=== PATIENT | male | born 1980 | race Caucasian/White ===

== ENCOUNTER 2021-07-23 10:15 | Emergency (ER) | payer BC ==
[2021-07-23] MEDS ORDERED: ONDANSETRON 4 MG/2 ML VIAL ONE (10:26)
[2021-07-23] MEDS ORDERED: MEPERIDINE HCL 25 MG/ML SYR ONE ×2 (10:26→11:18)
--- NOTE | 2021-07-23 12:05 | RAD REPORT ---
EXAM DESCRIPTION: RAD - Chest Single View - 07/23/2021 11:16 am CLINICAL HISTORY: fall from ladder, chest and left shoulder pain COMPARISON: September 2016 TECHNIQUE: AP portable chest image was obtained 07/23/2021 11:16 am . FINDINGS: Lungs are clear. Heart and vasculature are normal. No measurable pleural effusion and no p neumothorax. No acute bony abnormality seen. No acute aortic findings suspected. IMPRESSION: No acute cardiopulmonary process. Rib detail is limited on single view examination. Concerns for rib fracture can be addressed with ded icated rib films as warranted.
--- NOTE | 2021-07-23 12:06 | RAD REPORT ---
EXAM DESCRIPTION: RAD - C Spine Ap/Lat - 07/23/2021 11:16 am CLINICAL HISTORY: fall from ladder;Pain COMPARISON: No comparisons FINDINGS: Cervical bodies are normal in height. Very slight retrolisthesis of C5 on C6 noted. This i s believed to be baseline. No fracture or acute bony process seen. No disc space narrowing. Mild lowe r cervical facet degenerative changes are present. There is no prevertebral soft tissue thickening or other suspicious soft tissue finding. IMPRESSION: Negative cervical spine examination for fracture or acute finding. Concerns for disc herniation, central canal abnormality or occult bone process can be addressed with follow-up MRI imaging.
--- NOTE | 2021-07-23 12:07 | RAD REPORT ---
EXAM DESCRIPTION: RAD - Shoulder Left 2 View - 07/23/2021 11:16 am CLINICAL HISTORY: PAIN COMPARISON: No comparisons TECHNIQUE: Internal and external rotation views of the left shoulder were obtained. FINDINGS: There is no fracture or dislocation. AC joint is normal in appearance. Ribs of the upper c hest appear intact. No acute or suspicious findings. IMPRESSION: Negative two-view left shoulder examination for acute findings.
--- NOTE | 2021-07-23 12:08 | RAD REPORT ---
EXAM DESCRIPTION: RAD - Humerus Left - 07/23/2021 11:16 am CLINICAL HISTORY: Fall, left shoulder and arm pain COMPARISON: None. FINDINGS: No fracture is identified. There is no dislocation or periosteal reaction noted. No forei gn body or other soft tissue abnormality. IMPRESSION: Negative left humerus examination.
--- NOTE | 2021-07-23 12:08 | RAD REPORT ---
EXAM DESCRIPTION: RAD - Wrist Left 3 View - 07/23/2021 11:16 am CLINICAL HISTORY: PAIN, fall with shoulder arm and wrist pain left-side COMPARISON: No comparisons FINDINGS: No fracture is identified. There is no dislocation or periosteal reaction noted. No foreig n body or other soft tissue abnormality. IMPRESSION: Negative left wrist examination.
--- NOTE | 2021-07-23 12:20 | EDPHYS ---
Physician Documentation [facility] Name: Gerber Phan Age: 41 yrs Sex: Male : 1980 Arrival Date: 07/23/2021 Time: 10:16 Bed 5 Private MD: ED Physician Lito Villanueva HPI: 07/23 10:28 This 41 yrs old Male presents to ER via Wheelchair with complaints of Fall rn off 8 Ft Ladder, Trauma Complaint. 10:28 Trauma demographics: Location of Injury: The injury occurred outdoors. Mechanism of rn injury: Fall: the patient fell from a ladder approximately approximately 8 feet, and struck a grass-covered surface. Associated injuries: The patient sustained neck injury, pain, Left shoulder. Onset: The symptoms/episode began/occurred just prior to arrival. The patient has not experienced similar symptoms in the past. Patient reports fell 8 feet from ladder, landed on left side of body, reports pain to left shoulder mainly but also mild pain to left side of neck. Denies LOC or head injury. Does not take blood thinners. Denies chest pain/abdominal pain/lower extremity pain. Reports also mild pain to left wrist. Hurts to move left shoulder.. Historical: - Allergies: 10:26 HYDROCODONE; vg1 10:26 PENICILLINS; vg1 10:26 Chlorhexidine Gluconate; vg1 - PMHx: 10:38 Depression; low testosterone; jl7 - PSHx: 10:26 None; vg1 - Immunization history:: Client reports receiving the 2nd dose of the Covid vaccine. - Social history:: Smoking status: Patient denies any tobacco usage or history of. - Immunization history: Last tetanus immunization: < 10 years ago. - Family history:: not pertinent. - Hospitalizations: : No recent hospitalization is reported. ROS: 10:28 Constitutional: Negative for fever, chills, and weight loss, Eyes: Negative for injury, rn pain, redness, and discharge, ENT: Negative for injury, pain, and discharge, Neck: Mild left-sided neck pain Cardiovascular: Negative for chest pain, palpitations, and edema, Respiratory: Negative for shortness of breath, cough, wheezing, and pleuritic chest pain, Abdomen/GI: Negative for abdominal pain, nausea, vomiting, diarrhea, and constipation, Back: Negative for injury and pain, : Negative for injury, bleeding, discharge, and swelling, MS/Extremity: Pain to left shoulder that increases with range of motion and elevation, mild pain to left wrist Skin: Negative for injury, rash, and discoloration, Neuro: Negative for headache, weakness, numbness, tingling, and seizure. Exam: 10:28 Constitutional: This is a well developed, well nourished patient who is awake, alert, rn and in no acute distress. Head/Face: Normocephalic, atraumatic. Eyes: Periorbital areas with no swelling, redness, or edema. Neck: No midline cervical tenderness no crepitus, no masses Chest/axilla: Normal chest wall appearance and motion. Nontender with no deformity. No lesions are appreciated. Cardiovascular: Regular rate and rhythm. No pulse deficits. Respiratory: Speaking full sentences, unlabored. No increased work of breathing, no retractions or nasal flaring. Abdomen/GI: Soft, non-tender Back: No spinal tenderness. No costovertebral tenderness. Full range of motion. Skin: Warm, dry with normal turgor. Normal color with no rashes, no lesions, and no evidence of cellulitis. MS/ Extremity: Pulses equal, no cyanosis. Moderate painful range of motion left shoulder, unable to touch opposite shoulder with left hand. Tenderness to proximal left humerus. No tenderness along clavicle. No crepitus. Neuro: Awake and alert, GCS 15, oriented to person, place, time, and situation. Cranial nerves II-XII grossly intact. Motor strength 5/5 in all extremities. Sensory grossly intact. Vital Signs: 10:24 BP 145 / 83; Pulse 75; Resp 18; Temp 98.4; Pulse Ox 100% ; Weight 97.52 kg; Height 6 vg1 ft. 3 in. (190.50 cm); Pain 10/10; 10:24 BP 145 / 83; Pulse 75; Resp 18 S; Temp 98.4; Pulse Ox 100% on R/A; Weight 97.52 kg; jl7 Height 6 ft. 3 in. (190.50 cm); Pain 10/10; 11:00 BP 131 / 81; Pulse 59; Resp 15; Pulse Ox 96% ; jl7 11:30 BP 133 / 83; Pulse 61; Resp 15; Pulse Ox 94% ; jl7 12:00 BP 134 / 80; Pulse 61; Resp 16; Pulse Ox 95% on R/A; ll3 12:30 BP 126 / 84; Pulse 60; Resp 16; Pulse Ox 97% ; ll3 10:24 Body Mass Index 26.87 (97.52 kg, 190.50 cm) vg1 [place] Coma Score: 10:24 Eye Response: spontaneous(4). Verbal Response: oriented(5). Motor Response: obeys jl7 commands(6). Total: 15. 11:00 Eye Response: spontaneous(4). Verbal Response: oriented(5). Motor Response: obeys jl7 commands(6). Total: 15. 11:30 Eye Response: spontaneous(4). Verbal Response: oriented(5). Motor Response: obeys jl7 commands(6). Total: 15. 12:00 Eye Response: spontaneous(4). Verbal Response: oriented(5). Motor Response: obeys ll3 commands(6). Total: 15. 12:30 Eye Response: spontaneous(4). Verbal Response: oriented(5). Motor Response: obeys jl7 commands(6). Total: 15. Trauma Score (Adult): 10:24 Eye Response: spontaneous(1); Verbal Response: oriented(1); Motor Response: obeys jl7 commands(2); Systolic BP: > 89 mm Hg(4); Respiratory Rate: 10 to 29 per min(4); Tracey Score: 15; Trauma Score: 12 MDM: 10:19 Patient medically screened. rn 12:18 Differential diagnosis: extremity fracture, C spine fracture. Data reviewed: vital rn signs, nurses notes, radiologic studies, plain films, and as a result, I will discharge patient. Counseling: I had a detailed discussion with the patient and/or guardian regarding: the historical points, exam findings, and any diagnostic results supporting the discharge/admit diagnosis, radiology results, the need for outpatient follow up, to return to the emergency department if symptoms worsen or persist or if there are any questions or concerns that arise at home. Response to treatment: the patient's symptoms have mildly improved after treatment, and as a result, I will discharge patient. Special discussion: I discussed with the patient/guardian in detail that at this point there is no indication for admission to the hospital. It is understood, however, that if the symptoms persist or worsen the patient needs to return immediately for re-evaluation. Based on the history and exam findings, there is no indication for further emergent testing or inpatient evaluation. I discussed with the patient/guardian the need to see the orthopedic surgeon for further evaluation of the symptoms. ED course: Patient with improvement after pain medication. No acute fracture or dislocation. Most likely ligamentous or tendon injury involving the left shoulder. Will place in sling and discharged home with pain medication and muscle relaxers as well as orthopedic follow-up for MRI.. 07/23 10:24 Order name: XRAY C Spine Ap/lat; Complete Time: 12:09 rn 07/23 10:24 Order name: XRAY Shoulder LEFT 2 view; Complete Time: 12: rn 07/23 10:24 Order name: XRAY Humerus LEFT; Complete Time: 12: rn 07/23 10:24 Order name: XRAY Wrist LEFT 3 view; Complete Time: 12: rn 07/23 10:31 Order name: XRAY Chest (1 view); Complete Time: 12: rn 07/23 10:24 Order name: IV Start; Complete Time: 10:52 rn 07/23 10:24 Order name: NPO; Complete Time: 10:27 rn 07/23 11:28 Order name: Sling; Complete Time: 13:42 rn Administered Medications: 10:52 Drug: Demerol (meperidine) 25 mg Route: IVP; Site: right antecubital; ll3 11:27 Follow up: Response: No adverse reaction; Pain is unchanged, physician notified ll3 10:52 Drug: Zofran (Ondansetron) 4 mg Route: IVP; Site: right antecubital; ll3 11:27 Follow up: Response: No adverse reaction ll3 11:25 Drug: Demerol (meperidine) 25 mg Route: IVP; Site: right antecubital; ll3 12:31 Follow up: Response: No adverse reaction; Pain is decreased ll3 11:27 CANCELLED (wrong orderr): Demerol (meperidine) 25 mg IM once; RASS on ADMIN: Combtv4, ll3 Very Agttd3, Agttd2, Rstlss1, AlertClm0, Drwsy-1, Lt Sdtn-2, Mod Sdtn-3, Dp Sdtn-4, UnArsble-5 Disposition Summary: 07/23/21 12:19 Discharge Ordered Location: Home rn Problem: new rn Symptoms: have improved rn Condition: Stable rn Diagnosis - Contusion of left shoulder rn - Other sprain of left shoulder joint rn Followup: rn - With: Ryan Aguiar MD - When: 5 - 6 days - Reason: Recheck today's complaints, Re-evaluation by your physician Discharge Instructions: - Discharge Summary Sheet rn - Shoulder Pain rn - Neck Contusion rn - Shoulder Sprain rn Forms: - Medication Reconciliation Form rn - Thank You Letter rn - Antibiotic afternoon nanny - Prescription Opioid Use rn Prescriptions: - Ibuprofen 800 mg Oral Tablet - take 1 tablet by ORAL route every 8 hours As needed take with food; 9 tablet; rn Refills: 0, Product Selection Permitted - Cyclobenzaprine 10 mg Oral Tablet - take 1 tablet by ORAL route every 8 hours As needed; 15 tablet; Refills: 0, rn Product Selection Permitted - Tramadol 50 mg Oral Tablet - take 1 tablet by ORAL route every 8 hours as needed; 15 tablet; Refills: 0, rn Product Selection Permitted Signatures: Dispatcher [employer] EDMS Lito Villanueva MD MD rn Leal, Jahala, RN RN jl7 Citlalli Werner RN RN vg1 Anaid Johns, RN RN ll3 Corrections: (The following items were deleted from the chart) 11:27 11:26 Demerol (meperidine) 25 mg IM once; RASS on ADMIN: Combtv4, Very Agttd3, Agttd2, ll3 Rstlss1, AlertClm0, Drwsy-1, Lt Sdtn-2, Mod Sdtn-3, Dp Sdtn-4, UnArsble-5 ordered. ll3
--- NOTE | 2021-07-23 12:20 | ER ---
Nurse's Notes [facility] Name: Gerber Phan Age: 41 yrs Sex: Male : 1980 Arrival Date: 07/23/2021 Time: 10:16 Bed 5 Private MD: Diagnosis: Contusion of left shoulder;Other sprain of left shoulder joint Presentation: 07/23 10:24 Chief complaint: Patient states: Approximately 30 minutes ago pt fell off an 8 foot vg1 ladder onto grass, states fell onto left side, c/o Left shoulder pain and left side of neck. Denies hitting head or LOC. Coronavirus screen: Vaccine status: Patient reports receiving the 2nd dose of the covid vaccine. Client denies travel out of the [place] in the last 14 days. Ebola Screen: Patient negative for fever greater than or equal to 101.5 degrees Fahrenheit, and additional compatible Ebola Virus Disease symptoms. Initial Sepsis Screen: Does the patient meet any 2 criteria? No. Patient's initial sepsis screen is negative. Does the patient have a suspected source of infection? No. Patient's initial sepsis screen is negative. Risk Assessment: Do you want to hurt yourself or someone else? Patient reports no desire to harm self or others. Onset of symptoms was July 23, 2021. 10:24 Method Of Arrival: Wheelchair vg1 10:24 Acuity: TINO 3 vg1 10:32 Care prior to arrival: None. Mechanism of Injury: Fall from ladder approximately 8 jl7 feet. Trauma event details: Injury occurred in the [facility], Injury occurred: at home. Injury occurred: July 23, 2021 Injury occurred at: 10:00. Triage Assessment: 10:26 General: Appears in no apparent distress. uncomfortable, Behavior is calm, cooperative. vg1 Pain: Complains of pain in Left shoulder, neck and Left wrist Pain currently is 10 out of 10 on a pain scale. Neuro: Level of Consciousness is awake, alert, obeys commands, Oriented to person, place, time, situation. Trauma Activation: Alert Physician: ED Physician; Name: Rich; Notified At: 10:24; Arrived At: 10:20 Physician: General Surgeon; Name: ; Notified At: 10:24; Arrived At: Physician: Radiology; Name: Yadira; Notified At: 10:24; Arrived At: 10:25 Physician: Respiratory; Name: ; Notified At: 10:24; Arrived At: Physician: Lab; Name: ; Notified At: 10:24; Arrived At: Historical: - Allergies: 10:26 HYDROCODONE; vg1 10:26 PENICILLINS; vg1 10:26 Chlorhexidine Gluconate; vg1 - PMHx: 10:38 Depression; low testosterone; jl7 - PSHx: 10:26 None; vg1 - Immunization history:: Client reports receiving the 2nd dose of the Covid vaccine. - Social history:: Smoking status: Patient denies any tobacco usage or history of. - Immunization history: Last tetanus immunization: < 10 years ago. - Family history:: not pertinent. - Hospitalizations: : No recent hospitalization is reported. Screenin:24 Abuse screen: Denies threats or abuse. Denies injuries from another. Tuberculosis jl7 screening: No symptoms or risk factors identified. 12:50 Fall Risk IV access (20 points). ll3 12:50 Nutritional screening: No deficits noted. ll3 Primary Survey: 10:24 NO uncontrolled hemorrhage observed. A: Airway: patent. Breathing/Chest: Respiratory jl7 pattern: regular, Respiratory effort: spontaneous, unlabored, Breath sounds: clear, bilaterally. Chest inspection: symmetrical rise and fall of the chest. Circulation: Pulses: palpable right radial artery and left radial artery. Skin color: pink, Skin temperature: warm. Disability Alert. Exposure/Environment: All clothing and personal items were removed. Forensic evidence collection is not deemed to be indicated at this time. Items placed in patient belonging bag. There is no evidence of uncontrolled external bleeding. Obvious injury(ies) are noted at this time: Reports left arm pain A warming method has been applied: A warm blanket has been provided to the patient. 11:00 Reassessment Airway Airway Patent Breathing/Chest Respiratory pattern Regular jl7 Respiratory effort Spontaneous Unlabored Chest inspection Symmetrical Circulation Color [place] Disability Alert. 12:50 Reassessment Breathing/Chest Respiratory pattern Regular Respiratory effort Spontaneous.ll3 Assessment: 10:30 General: Appears in no apparent distress. comfortable, Behavior is calm, cooperative. ll3 Pain: Complains of pain in anterior aspect of left shoulder. Neuro: Level of Consciousness is awake, alert, obeys commands, Oriented to person, place, time, situation, Gait is steady, Speech is normal, Facial symmetry appears normal. Cardiovascular: Patient's skin is warm and dry. Respiratory: Airway is patent Trachea midline Respiratory effort is even, unlabored, Respiratory pattern is regular, symmetrical. GI: Abdomen is flat, non-distended, Abd is soft and non tender X 4 quads. Derm: Skin is pink, warm \T\ dry. Musculoskeletal: Range of motion: limited in left shoulder, left elbow and left wrist Reports pain in left arm. 11:30 Reassessment: Patient appears in no apparent distress at this time. No changes from ll3 previously documented assessment. Patient and/or family updated on plan of care and expected duration. Pain level reassessed. Patient is alert, oriented x 3, equal unlabored respirations, skin warm/dry/pink. Patient states symptoms have improved. 12:30 Reassessment: Patient appears in no apparent distress at this time. No changes from ll3 previously documented assessment. Patient and/or family updated on plan of care and expected duration. Pain level reassessed. Patient is alert, oriented x 3, equal unlabored respirations, skin warm/dry/pink. Patient states symptoms have improved. Vital Signs: 10:24 BP 145 / 83; Pulse 75; Resp 18; Temp 98.4; Pulse Ox 100% ; Weight 97.52 kg; Height 6 vg1 ft. 3 in. (190.50 cm); Pain 10/10; 10:24 BP 145 / 83; Pulse 75; Resp 18 S; Temp 98.4; Pulse Ox 100% on R/A; Weight 97.52 kg; jl7 Height 6 ft. 3 in. (190.50 cm); Pain 10/10; 11:00 BP 131 / 81; Pulse 59; Resp 15; Pulse Ox 96% ; jl7 11:30 BP 133 / 83; Pulse 61; Resp 15; Pulse Ox 94% ; jl7 12:00 BP 134 / 80; Pulse 61; Resp 16; Pulse Ox 95% on R/A; ll3 12:30 BP 126 / 84; Pulse 60; Resp 16; Pulse Ox 97% ; ll3 10:24 Body Mass Index 26.87 (97.52 kg, 190.50 cm) vg1 [place] Coma Score: 10:24 Eye Response: spontaneous(4). Verbal Response: oriented(5). Motor Response: obeys jl7 commands(6). Total: 15. 11:00 Eye Response: spontaneous(4). Verbal Response: oriented(5). Motor Response: obeys jl7 commands(6). Total: 15. 11:30 Eye Response: spontaneous(4). Verbal Response: oriented(5). Motor Response: obeys jl7 commands(6). Total: 15. 12:00 Eye Response: spontaneous(4). Verbal Response: oriented(5). Motor Response: obeys ll3 commands(6). Total: 15. 12:30 Eye Response: spontaneous(4). Verbal Response: oriented(5). Motor Response: obeys jl7 commands(6). Total: 15. Trauma Score (Adult): 10:24 Eye Response: spontaneous(1); Verbal Response: oriented(1); Motor Response: obeys jl7 commands(2); Systolic BP: > 89 mm Hg(4); Respiratory Rate: 10 to 29 per min(4); Tracey Score: 15; Trauma Score: 12 ED Course: 10:16 Patient arrived in ED. ds1 10:19 Lito Villanueva MD is Attending Physician. rn 10:24 Patient has correct armband on for positive identification. Placed in gown. Bed in low jl7 position. Call light in reach. Side rails up X2. 10:24 Patient maintains SpO2 saturation greater than 95% on room air. Thermoregulation: warm jl7 blanket given to patient. 10:26 Triage completed. vg1 10:26 Arm band placed on. vg1 10:27 Anaid Johns, DAVID is Primary Nurse. ll3 10:45 Inserted saline lock: 20 gauge in right antecubital area, using aseptic technique. ll3 11:16 XRAY C Spine Ap/lat In Process Unspecified. EDMS 11:16 XRAY Shoulder LEFT 2 view In Process Unspecified. EDMS 11:16 XRAY Humerus LEFT In Process Unspecified. EDMS 11:16 XRAY Wrist LEFT 3 view In Process Unspecified. EDMS 11:16 XRAY Chest (1 view) In Process Unspecified. EDMS 12:19 Ryan Aguiar MD is Referral Physician. rn 12:30 Sling applied to left arm. ll3 12:50 No provider procedures requiring assistance completed. IV discontinued, intact, ll3 bleeding controlled, No redness/swelling at site. Pressure dressing applied. Administered Medications: 10:52 Drug: Demerol (meperidine) 25 mg Route: IVP; Site: right antecubital; ll3 11:27 Follow up: Response: No adverse reaction; Pain is unchanged, physician notified ll3 10:52 Drug: Zofran (Ondansetron) 4 mg Route: IVP; Site: right antecubital; ll3 11:27 Follow up: Response: No adverse reaction ll3 11:25 Drug: Demerol (meperidine) 25 mg Route: IVP; Site: right antecubital; ll3 12:31 Follow up: Response: No adverse reaction; Pain is decreased ll3 11:27 CANCELLED (wrong orderr): Demerol (meperidine) 25 mg IM once; RASS on ADMIN: Combtv4, ll3 Very Agttd3, Agttd2, Rstlss1, AlertClm0, Drwsy-1, Lt Sdtn-2, Mod Sdtn-3, Dp Sdtn-4, UnArsble-5 Intake: 12:30 PO: 0ml; IV: 0ml; Tubes: 0ml (); Total: 0ml. jl7 Output: 12:30 Urine: 0ml; Gastric: 0ml; Stool: 0; EBL: 0ml; Drainage: 0ml; Other: 0; Total: 0ml. jl7 Outcome: 12:19 Discharge ordered by . rn 12:49 Discharged to home ambulatory. ll3 12:49 Condition: stable 12:49 Discharge instructions given to patient, Instructed on discharge instructions, follow up and referral plans. Demonstrated understanding of instructions, follow-up care, medications, Prescriptions given X 3. 12:55 Patient's length of stay was not longer than 2 hours. ll3 12:55 Patient left the ED. ll3 Signatures: Dispatcher [employer] EDCT TangAngelika dsLito Ross MD MD rn Leal, Jahala, RN RN jl7 Citlalli Werner RN RN 1 Anaid Johns RN RN ll3 Corrections: (The following items were deleted from the chart) 10:53 10:53 Inserted saline lock: 20 gauge in right antecubital area, using aseptic ll3 technique. ll3
[2021-07-23 13:02] VITALS: TEMP 98.4
[2021-07-23 13:09] VITALS: BP 126/84; O2SAT 97
== END 2021-07-23 12:55 | disposition home or self-care (01) ==
LOC: ER 10:15
DX: S43.492A Other sprain of left shoulder joint, initial encounter (principal); W11.XXXA Fall on and from ladder, initial encounter; Z88.0 Allergy status to penicillin; Z88.5 Allergy status to narcotic agent; Z88.8 Allergy status to other drugs, medicaments and biological substances
CPT/HCPCS: 71045; 72040; 73060; 73030; 73110; 96375; 96374; 99284; J2175 ×2; J2405

== ENCOUNTER 2021-08-20 01:13 | Inpatient (IN) | payer BC ==
[2021-08-20 02:20] LABS: Absolute Lymphocytes (CBC) 2.7 K/uL (0.7-4.9); Basophils % 0.8 % (0-1.3); Hematocrit 45.7 % (39.6-49.0); Lymphocytes % 32.4 % (15.3-44.8); MPV 7.4 fL (7.6-11.3); RBC Red Blood Cell Count 4.94 M/uL (4.33-5.43)
[2021-08-20 02:30] LABS: Protime INR 0.96
[2021-08-20 02:49] LABS: ALT/SGPT 28 U/L (12-78); AST/SGOT 18 U/L (15-37); Albumin 3.6 g/dL (3.4-5.0); Alkaline Phosphatase 93 U/L (45-117); BUN Blood Urea Nitrogen 36 mg/dL (7-18); Bicarbonate 24 mmol/L (21-32); Bilirubin Direct 0.1 mg/dL (0-0.2); Bilirubin Total 0.5 mg/dL (0.2-1.0); Glucose Level 153 mg/dL (74-106); Magnesium 2.2 mg/dL (1.8-2.4); NT PRO-BNP 211 pg/mL (<125); Potassium 3.9 mmol/L (3.5-5.1); Protein, Total 6.9 g/dL (6.4-8.2); Sodium Level 138 mmol/L (136-145); Troponin (Emerg Dept Use Only) < 0.02 ng/mL (0.0-0.045)
[2021-08-20 02:56] LABS: SARS-COV-2 RT PCR NEGATIVE (NEGATIVE)
[2021-08-20] MEDS ORDERED: NA CHLORIDE 0.9% 1,000 ML ONE (03:01)
[2021-08-20 03:08] LABS: Barbiturates NEGATIVE (NEGATIVE); Benzodiazepines NEGATIVE (NEGATIVE); Cocaine NEGATIVE (NEGATIVE); METHAMPHETAM NEGATIVE (NEGATIVE); Methadone NEGATIVE (NEGATIVE); Opiates NEGATIVE (NEGATIVE); Phencyclidine NEGATIVE (NEGATIVE); THC Cannibis POSITIVE (NEGATIVE)
--- NOTE | 2021-08-20 04:24 | EDPHYS ---
Physician Documentation [facility] Name: Gerber Phan Age: 41 yrs Sex: Male : 1980 Arrival Date: 08/20/2021 Time: 01:15 Bed 16 Private MD: ROSIO Physician Rahul Joshua HPI: 08/20 02:00 This 41 yrs old Male presents to ER via Wheelchair with complaints of Syncope - About mh7 20mins ago, was sweating profusely,speaking jibberish. 02:00 The patient has experienced syncope, collapsed. Onset: The symptoms/episode mh7 began/occurred today. Duration: This was a single episode, that lasted an unknown period of time. Context: the episode(s) was witnessed, by family, , occurred at home, occurred while the patient was walking, Just prior to the episode the patient experienced dizziness, lightheadedness. Associated injury: Head/face: Back of head, pain. Associated signs and symptoms: Pertinent positives: confusion, diaphoresis, dizziness, headache, lightheadedness, Pertinent negatives: abdominal pain, agitation, ataxia, blurred vision, chest pain, combativeness, diarrhea, nausea, numbness, palpitations, seizure, shortness of breath, tingling, vertigo, vomiting, weakness. Current symptoms: Currently, the patient is not experiencing any symptoms, the patient feels back to baseline. Historical: - Allergies: 01:34 Chlorhexidine Gluconate; bb 01:34 HYDROCODONE; bb 01:34 PENICILLINS; bb - Home Meds: 01:34 testosterone [Active]; bb - PMHx: 01:34 low testosterone; Depression; bb - PSHx: 01:34 rotator cuff; hernia; bb - Immunization history:: Adult Immunizations up to date, Client reports receiving the 2nd dose of the Covid vaccine, Moderna. - Social history:: Smoking status: Patient denies any tobacco usage or history of. Patient uses alcohol, but reports only rare drinking. Patient/guardian denies using street drugs. ROS: 02:00 Constitutional: Negative for fever, chills, and weight loss, Eyes: Negative for injury, mh7 pain, redness, and discharge, ENT: Negative for injury, pain, and discharge, Neck: Negative for injury, pain, and swelling, Cardiovascular: Negative for chest pain, palpitations, and edema, Respiratory: Negative for shortness of breath, cough, wheezing, and pleuritic chest pain, Abdomen/GI: Negative for abdominal pain, nausea, vomiting, diarrhea, and constipation, Back: Negative for injury and pain, : Negative for injury, bleeding, discharge, and swelling, MS/Extremity: Negative for injury and deformity, Skin: Negative for injury, rash, and discoloration, Psych: Negative for depression, anxiety, suicide ideation, homicidal ideation, and hallucinations, Allergy/Immunology: Negative for hives, rash, and allergies, Endocrine: Negative for neck swelling, polydipsia, polyuria, polyphagia, and marked weight changes, Hematologic/Lymphatic: Negative for swollen nodes, abnormal bleeding, and unusual bruising. Exam: 02:00 Constitutional: This is a well developed, well nourished patient who is awake, alert, mh7 and in no acute distress. Head/Face: Normocephalic, atraumatic. Eyes: Pupils equal round and reactive to light, extra-ocular motions intact. Lids and lashes normal. Conjunctiva and sclera are non-icteric and not injected. Cornea within normal limits. Periorbital areas with no swelling, redness, or edema. ENT: Nares patent. No nasal discharge, no septal abnormalities noted. Tympanic membranes are normal and external auditory canals are clear. Oropharynx with no redness, swelling, or masses, exudates, or evidence of obstruction, uvula midline. Mucous membranes moist. Neck: Trachea midline, no thyromegaly or masses palpated, and no cervical lymphadenopathy. Supple, full range of motion without nuchal rigidity, or vertebral point tenderness. No Meningismus. Chest/axilla: Normal chest wall appearance and motion. Nontender with no deformity. No lesions are appreciated. Cardiovascular: Regular rate and rhythm with a normal S1 and S2. No gallops, murmurs, or rubs. Normal PMI, no JVD. No pulse deficits. Respiratory: Lungs have equal breath sounds bilaterally, clear to auscultation and percussion. No rales, rhonchi or wheezes noted. No increased work of breathing, no retractions or nasal flaring. Abdomen/GI: Soft, non-tender, with normal bowel sounds. No distension or tympany. No guarding or rebound. No evidence of tenderness throughout. Back: No spinal tenderness. No costovertebral tenderness. Full range of motion. Skin: Warm, dry with normal turgor. Normal color with no rashes, no lesions, and no evidence of cellulitis. MS/ Extremity: Pulses equal, no cyanosis. Neurovascular intact. Full, normal range of motion. Neuro: Awake and alert, GCS 15, oriented to person, place, time, and situation. Cranial nerves II-XII grossly intact. Motor strength 5/5 in all extremities. Sensory grossly intact. Cerebellar exam normal. Normal gait. Psych: Awake, alert, with orientation to person, place and time. Behavior, mood, and affect are within normal limits. Vital Signs: 01:15 BP 120 / 76; Pulse 84; Resp 16; Pulse Ox 94% on R/A; mk 01:31 BP 99 / 72; Pulse 74; Resp 16 S; Temp 98.8(O); Pulse Ox 98% on R/A; Weight 97.52 kg bb (R); Height 6 ft. 4 in. (193.04 cm) (R); Pain 09/11; 01:43 BP 83 / 61; bb 02:58 BP 117 / 74; Pulse 87; Resp 18; Pulse Ox 95% on R/A; mk 03:30 BP 117 / 66; Pulse 76; Resp 14; Pulse Ox 93% on R/A; mk 04:00 BP 119 / 70; Pulse 76; Resp 18; Pulse Ox 92% on R/A; mk 04:30 BP 114 / 68; Pulse 76; Resp 15; Pulse Ox 88% on R/A; mk 04:30 BP 108 / 71; Pulse 74; Resp 14; Pulse Ox 92% on 3 lpm NC; mk 04:30 BP 109 / 70; Pulse 77; Resp 21; Pulse Ox 93% on 3 lpm NC; mk 05:00 BP 143 / 83; Pulse 88; Resp 16; Pulse Ox 96% on R/A; mk 05:37 BP 137 / 78; Pulse 81; Resp 18; Pulse Ox 98% on R/A; mk 06:01 BP 101 / 88; Pulse 68; Resp 18; Pulse Ox 98% on R/A; mk 06:32 BP 143 / 86; Pulse 73; Resp 18; Temp 98.5; Pulse Ox 97% ; mk 01:31 Body Mass Index 26.17 (97.52 kg, 193.04 cm) bb [place] Coma Score: 02:58 Eye Response: spontaneous(4). Verbal Response: oriented(5). Motor Response: obeys mk commands(6). Total: 15. 03:30 Eye Response: spontaneous(4). Verbal Response: oriented(5). Motor Response: obeys mk commands(6). Total: 15. 04:00 Eye Response: spontaneous(4). Verbal Response: oriented(5). Motor Response: obeys mk commands(6). Total: 15. 04:30 Eye Response: spontaneous(4). Verbal Response: oriented(5). Motor Response: obeys mk commands(6). Total: 15. 04:30 Eye Response: spontaneous(4). Verbal Response: oriented(5). Motor Response: obeys mk commands(6). Total: 15. 04:30 Eye Response: spontaneous(4). Verbal Response: oriented(5). Motor Response: obeys mk commands(6). Total: 15. 05:02 Eye Response: spontaneous(4). Verbal Response: oriented(5). Motor Response: obeys mk commands(6). Total: 15. 05:37 Eye Response: spontaneous(4). Verbal Response: oriented(5). Motor Response: obeys mk commands(6). Total: 15. 06:01 Eye Response: spontaneous(4). Verbal Response: oriented(5). Motor Response: obeys mk commands(6). Total: 15. 06:30 Eye Response: spontaneous(4). Verbal Response: oriented(5). Motor Response: obeys mk commands(6). Total: 15. MDM: 04:21 Differential Diagnosis: cardiac arrhythmia, cerebrovascular accident, drug effect, mh7 emotional response, idiopathic syncope, pseudo seizure, seizure, transient ischemic attack, vasovagal episode. Data reviewed: vital signs, nurses notes, old medical records, lab test result(s), cardiac enzymes, CBC, electrolytes, urinalysis, urine drug screen, EKG, radiologic studies, CT scan, plain films. Data interpreted: Pulse oximetry: on room air is 95 %. Interpretation: normal. Counseling: I had a detailed discussion with the patient and/or guardian regarding: the historical points, exam findings, and any diagnostic results supporting the discharge/admit diagnosis, lab results, radiology results, the need for further work-up and treatment in the hospital. Response to treatment: the patient's symptoms have markedly improved after treatment. 04:23 Patient medically screened. [facility] 08/20 01:50 Order name: Basic Metabolic Panel [facility] 08/20 01:50 Order name: CBC with Diff [facility] 08/20 01:50 Order name: LFT's; Complete Time: 04:13 [facility] 08/20 01:50 Order name: Magnesium; Complete Time: 04: [facility] 08/20 01:50 Order name: NT PRO-BNP; Complete Time: 04: [facility] 08/20 01:50 Order name: PT-INR; Complete Time: 04: [facility] 08/20 01:50 Order name: Troponin (emerg Dept Use Only); Complete Time: 04: [facility] 08/20 01:50 Order name: UDS; Complete Time: 04:13 [facility] 08/20 01:50 Order name: ETOH Level; Complete Time: 04: [facility] 08/20 01:50 Order name: Acetaminophen; Complete Time: 04: [facility] 08/20 01:50 Order name: Salicylate; Complete Time: 04: [facility] 08/20 01:51 Order name: Basic Metabolic Panel; Complete Time: 04: [facility] 08/20 01:51 Order name: CBC with Automated Diff; Complete Time: 04: [facility] 08/20 01:52 Order name: COVID-19/FLU A+B (Document "Date of Onset" if Symptomatic); Complete Time: [facility] 04:08/20 01:50 Order name: XRAY Chest (1 view) [facility] 08/20 01:50 Order name: EKG; Complete Time: 01:52 [facility] 08/20 01:50 Order name: Cardiac monitoring; Complete Time: 02: [facility] 08/20 01:50 Order name: EKG - Nurse/Tech; Complete Time: 02: [facility] 08/20 01:50 Order name: IV Saline Lock; Complete Time: 02:15 [facility] 08/20 01:50 Order name: Labs collected and sent; Complete Time: 02: [facility] 08/20 01:50 Order name: O2 Per Protocol; Complete Time: 02:52 [facility] 08/20 01:50 Order name: O2 Sat Monitoring; Complete Time: 02:15 [facility] 08/20 01:52 Order name: TSH; Complete Time: 04:13 [facility] 08/20 01:52 Order name: CT Head Brain wo Cont [facility] 08/20 04:15 Order name: D-Dimer [facility] 08/20 04:31 Order name: CONS Physician Consult [facility] 08/20 08:02 Order name: Troponin I [facility] 08/20 08:02 Order name: T4 Free [facility] 08/20 01:50 Order name: Urine Dipstick-Ancillary (obtain specimen); Complete Time: 02:52 [facility] Administered Medications: 03:04 Drug: NS 0.9% 1000 ml Route: IV; Rate: 1000 ml; Site: left forearm; mk 05:06 Follow up: Response: No adverse reaction; IV Status: Completed infusion; IV Intake: mk 1000ml 04:45 Drug: Aspirin Chewable Tablet 162 mg Route: PO; mk 05:07 Follow up: Response: No adverse reaction mk Disposition Summary: 08/20/21 04:23 Hospitalization Ordered Hospitalization Status: Inpatient Admission [facility] Provider: Pradeep Pablo Condition: Stable [facility] Problem: new [facility] Symptoms: have improved [facility] Bed/Room Type: Standard [facility] Location: Telemetry/MedSurg (Inpatient)(08/20/21 08:33) eb Room Assignment: [facility](08/20/21 08:33) Diagnosis - Syncope [facility] - Atrial fibrillation, new onset [facility] Forms: - Medication Reconciliation Form [facility] - SBAR form [facility] Signatures: Dispatcher [employer] [facility] Dior Olivares RN RN mw Ballard, Brenda, RN RN bb Botello, Elizabeth eb Holmes, Maurice, MD MD Parris Bone RN RN mk Corrections: (The following items were deleted from the chart) 05:25 04:23 Telemetry/MedSurg (Inpatient) [facility] 05:25 04:23 [facility] 08:33 05:25 [facility] ER HOLD [facility] 08:33 05:25 ERHOLD- [facility]
--- NOTE | 2021-08-20 04:24 | ER ---
Nurse's Notes [facility] Name: Gerber Phan Age: 41 yrs Sex: Male : 1980 Arrival Date: 08/20/2021 Time: 01:15 Bed 16 Private MD: Diagnosis: Syncope;Atrial fibrillation, new onset Presentation: 08/20 01:31 Chief complaint: Spouse and/or significant other states: she and pt were lying in bed bb watching TV he got up to go to the bathroom when she heard a loud noise she went into the bathroom pt had passed out and was out for maybe a minute and was sweating profusely and speaking jibberish. Coronavirus screen: At this time, the client does not indicate any symptoms associated with coronavirus-19. Ebola Screen: No symptoms or risks identified at this time. Initial Sepsis Screen: Does the patient meet any 2 criteria? No. Patient's initial sepsis screen is negative. Does the patient have a suspected source of infection? No. Patient's initial sepsis screen is negative. Risk Assessment: Do you want to hurt yourself or someone else? Patient reports no desire to harm self or others. Onset of symptoms was August 20, 2021. 01:31 Method Of Arrival: Wheelchair bb 01:31 Acuity: TINO 2 bb Triage Assessment: 01:43 General: Appears in no apparent distress. Behavior is calm, cooperative. mk 01:48 Neuro: Level of Consciousness is awake, alert, obeys commands, Oriented to person, mk place, time, situation, [employer] Finishing Supervisor are equal bilaterally Moves all extremities. Full function Gait is steady, Speech is normal, Facial droop on left, droop to L corner of mouth w/ smile, spouse states this is normal. 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 Cardiovascular: Reports diaphoresis, lightheadedness, syncope, Denies chest pain, Heart tones S1 S2 present Capillary refill < 3 seconds fingers toes Pulses are 2+ in right radial artery, right dorsalis pedis artery, left radial artery and left dorsalis pedis artery Rhythm is atrial fibrillation Parent/caregiver reports patient has had syncope. Respiratory: Airway is patent Trachea midline Respiratory effort is even, unlabored, Respiratory pattern is regular, symmetrical, Parent/caregiver reports the patient having pt's SpO2 usually 'in the low 90s'. GI: Abdomen is flat, non-distended, Bowel sounds present X 4 quads. Abd is soft and non tender X 4 quads. Abd is soft Abd is non tender. : No signs and/or symptoms were reported regarding the genitourinary system. Derm: Skin is intact, Skin is clammy, Skin is pink, warm \\T\\ dry. Skin temperature is warm. Musculoskeletal: Circulation, motion, and sensation intact. Capillary refill < 3 seconds, Range of motion: intact in all extremities. 05:12 General: Appears. mk Historical: - Allergies: 01:34 Chlorhexidine Gluconate; bb 01:34 HYDROCODONE; bb 01:34 PENICILLINS; bb - Home Meds: :34 testosterone [Active]; bb - PMHx: 01:34 low testosterone; Depression; bb - PSHx: 01:34 rotator cuff; hernia; bb - Immunization history:: Adult Immunizations up to date, Client reports receiving the 2nd dose of the Covid vaccine, Moderna. - Social history:: Smoking status: Patient denies any tobacco usage or history of. Patient uses alcohol, but reports only rare drinking. Patient/guardian denies using street drugs. Screenin:11 Abuse screen: Denies threats or abuse. Nutritional screening: No deficits noted. Tuberculosis screening: No symptoms or risk factors identified. Fall Risk No fall in past 12 months (0 pts). No secondary diagnosis (0 pts). IV access (20 points). Ambulatory Aid- None/Bed Rest/Nurse Assist (0 pts). Gait- Normal/Bed Rest/Wheelchair (0 pts) Mental Status- Oriented to own ability (0 pts). Total Cooley Fall Scale indicates No Risk (0-24 pts). Assessment: 01:48 General: Appears in no apparent distress. Behavior is calm, cooperative. Pain: Denies pain. Neuro: Level of Consciousness is awake, alert, obeys commands, Oriented to person, place, time, situation, [employer] Finishing Supervisor are equal bilaterally Moves all extremities. Full function Gait is steady, Speech is normal, Facial droop on left, normal per for pt. Pupils are PERRLA, Intact. Neuro: Reports a syncopal episode. Cardiovascular: Heart tones S1 S2 Capillary refill < 3 seconds in bilateral fingers toes Pulses are 2+ in right radial artery, right dorsalis pedis artery, left radial artery and left dorsalis pedis artery Edema is absent. Rhythm is atrial fibrillation. Respiratory: Airway is patent Trachea midline Respiratory effort is even, unlabored, Respiratory pattern is regular, symmetrical, Breath sounds are clear. GI: No signs and/or symptoms were reported involving the gastrointestinal system. Abdomen is flat, non-distended, Bowel sounds present X 4 quads. Abd is soft and non tender X 4 quads. : No signs and/or symptoms were reported regarding the genitourinary system. Derm: No signs and/or symptoms reported regarding the dermatologic system. Skin is intact. Musculoskeletal: No signs and/or symptoms reported regarding the musculoskeletal system. 02:15 General: Appears in no apparent distress. Behavior is calm, cooperative. Pain: Denies mk pain. 04:15 Reassessment: Patient appears in no apparent distress at this time. No changes from previously documented assessment. Patient and/or family updated on plan of care and expected duration. Pain level reassessed. Patient is alert, oriented x 3, equal unlabored respirations, skin warm/dry/pink. 05:16 Reassessment: Patient appears in no apparent distress at this time. No changes from previously documented assessment. Patient and/or family updated on plan of care and expected duration. Pain level reassessed. Pain: Denies pain. Neuro: No deficits noted. Neuro: Level of Consciousness is awake, alert, obeys commands, Oriented to person, place, time, situation. Cardiovascular: Heart tones S1 S2. 06:15 Reassessment: No changes from previously documented assessment. Patient and/or family mk updated on plan of care and expected duration. Pain level reassessed. Patient is alert, oriented x 3, equal unlabored respirations, skin warm/dry/pink. Vital Signs: 01:15 BP 120 / 76; Pulse 84; Resp 16; Pulse Ox 94% on R/A; mk 01:31 BP 99 / 72; Pulse 74; Resp 16 S; Temp 98.8(O); Pulse Ox 98% on R/A; Weight 97.52 kg bb (R); Height 6 ft. 4 in. (193.04 cm) (R); Pain 09/11; 01:43 BP 83 / 61; bb 02:58 BP 117 / 74; Pulse 87; Resp 18; Pulse Ox 95% on R/A; mk 03:30 BP 117 / 66; Pulse 76; Resp 14; Pulse Ox 93% on R/A; mk 04:00 BP 119 / 70; Pulse 76; Resp 18; Pulse Ox 92% on R/A; mk 04:30 BP 114 / 68; Pulse 76; Resp 15; Pulse Ox 88% on R/A; mk 04:30 BP 108 / 71; Pulse 74; Resp 14; Pulse Ox 92% on 3 lpm NC; mk 04:30 BP 109 / 70; Pulse 77; Resp 21; Pulse Ox 93% on 3 lpm NC; mk 05:00 BP 143 / 83; Pulse 88; Resp 16; Pulse Ox 96% on R/A; mk 05:37 BP 137 / 78; Pulse 81; Resp 18; Pulse Ox 98% on R/A; mk 06:01 BP 101 / 88; Pulse 68; Resp 18; Pulse Ox 98% on R/A; mk 06:32 BP 143 / 86; Pulse 73; Resp 18; Temp 98.5; Pulse Ox 97% ; mk 01:31 Body Mass Index 26.17 (97.52 kg, 193.04 cm) bb [place] Coma Score: 02:58 Eye Response: spontaneous(4). Verbal Response: oriented(5). Motor Response: obeys mk commands(6). Total: 15. 03:30 Eye Response: spontaneous(4). Verbal Response: oriented(5). Motor Response: obeys mk commands(6). Total: 15. 04:00 Eye Response: spontaneous(4). Verbal Response: oriented(5). Motor Response: obeys mk commands(6). Total: 15. 04:30 Eye Response: spontaneous(4). Verbal Response: oriented(5). Motor Response: obeys mk commands(6). Total: 15. 04:30 Eye Response: spontaneous(4). Verbal Response: oriented(5). Motor Response: obeys mk commands(6). Total: 15. 04:30 Eye Response: spontaneous(4). Verbal Response: oriented(5). Motor Response: obeys mk commands(6). Total: 15. 05:02 Eye Response: spontaneous(4). Verbal Response: oriented(5). Motor Response: obeys mk commands(6). Total: 15. 05:37 Eye Response: spontaneous(4). Verbal Response: oriented(5). Motor Response: obeys mk commands(6). Total: 15. 06:01 Eye Response: spontaneous(4). Verbal Response: oriented(5). Motor Response: obeys mk commands(6). Total: 15. 06:30 Eye Response: spontaneous(4). Verbal Response: oriented(5). Motor Response: obeys mk commands(6). Total: 15. ED Course: 01:15 Patient arrived in ED. wm 01:34 Triage completed. bb 01:34 Arm band placed on. bb 01:48 Rahul Joshua MD is Attending Physician. mh7 02:03 XRAY Chest (1 view) In Process Unspecified. EDMS 02:14 Inserted saline lock: 20 gauge in left forearm, using aseptic technique. Blood oe collected. 02:16 CT Head Brain wo Cont In Process Unspecified. EDMS 02:16 COVID-19/FLU A+B (Document "Date of Onset" if Symptomatic) Sent. oe 02:27 Parris Sullivan, DAVID is Primary Nurse. mk 02:52 Basic Metabolic Panel Sent. mk 02:52 CBC with Diff Sent. mk 04:22 Pradeep Pablo is Hospitalizing Provider. 7 07:29 Primary Nurse role handed off by Parris Sullivan RN bp 07:29 Lionel Blevins, RN is Primary Nurse. bp Administered Medications: 03:04 Drug: NS 0.9% 1000 ml Route: IV; Rate: 1000 ml; Site: left forearm; mk 05:06 Follow up: Response: No adverse reaction; IV Status: Completed infusion; IV Intake: mk 1000ml 04:45 Drug: Aspirin Chewable Tablet 162 mg Route: PO; mk 05:07 Follow up: Response: No adverse reaction mk Intake: 05:06 IV: 1000ml; Total: 1000ml. mk Outcome: 04:23 Decision to Hospitalize by Provider. mh7 09:40 Patient left the ED. bp Signatures: Dispatcher [employer] Bee Quiles RN RN bb Lucien Morales oe Lionel Blevins, RN DAVID Rahul Joshua MD MD Kimberli Cook Parris Sullivan, DAVID HERNANDEZ mk Corrections: (The following items were deleted from the chart) 03:04 02:58 Pulse 87bpm; Resp 18bpm; Pulse Ox 95% RA; mk mk
[2021-08-20] MEDS ORDERED: ASPIRIN 81 MG CHEWABLE TABLET ONE (04:29)
--- NOTE | 2021-08-20 05:03 | P.HP ---
Certification for Inpatient Patient admitted to: Observation With expected LOS: <2 Midnights Patient will require the following post-hospital care: None Practitioner: I am a practitioner with admitting privileges, knowledge of patient current condition, hospital course, and medical plan of care. Services: Services provided to patient in accordance with Admission requirements found in Title 42 Section 412.3 of the Code of Federal Regulations Patient History Date of Service: 08/20/21 Primary Care Provider: Marissa Reason for admission: syncope, afib History of Present Illness: Mr. Phan is a 41 yo M who presents after syncopal episode. He got up to the go to the bathroom when he felt a tingling sensation throughout his body and felt like he was losing his balance, and the next thing he remember is waking up on the bathroom floor. He hit is head on the cabinet and he was initially confused. says he was diaphoretic and incoherent when she reached him. After about 5 minutes, she tried to help him stand up but he was still weak. BUN 36 GFR 65 Glu [address] Head without acute findings. Troponin negative. EKG shows rate controlled atrial fibrillation. Allergies hydrocodone Allergy (Unverified 09/30/16 00:47) Unknown Penicillins Allergy (Verified 07/15/14 11:55) Rash Home Medications: Escitalopram [Lexapro*] 10 mg PO DAILY 07/15/14 - Past Medical/Surgical History Past Medical History: Patient denies medical history -: rotator cuff repair -: hernia repair - Family History Father -: Stroke - Social History Smoking Status: Never smoker Alcohol use: No CD- Drugs: Yes Caffeine use: Yes Place of Residence: Home Review of Systems 10-point ROS is otherwise unremarkable General: Unremarkable Eyes: Unremarkable ENT: Unremarkable Respiratory: Unremarkable Cardiovascular: Unremarkable Gastrointestinal: Unremarkable Genitourinary: Unremarkable Musculoskeletal: Unremarkable Integumentary: Unremarkable Neurological: Weakness Lymphatics: Unremarkable Physical Examination - Physical Exam General: Alert, In no apparent distress HEENT: Atraumatic, PERRLA, Mucous membr. moist/pink, EOMI, Sclerae nonicteric Neck: Supple, 2+ carotid pulse no bruit, No LAD, Without JVD or thyroid abnormality Respiratory: Clear to auscultation bilaterally, Normal air movement Cardiovascular: Normal S1 S2, Irregular heart rate/rhythm Gastrointestinal: Normal bowel sounds, No tenderness Musculoskeletal: No tenderness Integumentary: No rashes Neurological: Normal speech, Normal strength at 5/5 x4 extr, Normal tone, Normal affect Lymphatics: No axilla or inguinal lymphadenopathy - Studies Laboratory Data (last 24 hrs) 08/20/21 01:53: PT 11.0, INR 0.96 08/20/21 01:53: WBC 8.40, Hgb 15.5, Hct 45.7, Plt Count 242 08/20/21 01:53: Sodium 138, Potassium 3.9, BUN 36 H, Creatinine 1.21, Glucose 153 H, Magnesium 2.2, Total Bilirubin 0.5, AST 18, ALT 28, Alkaline Phosphatase 93 Assessment and Plan - Problems (Diagnosis) (1) Syncope Current Visit: Yes Status: Acute Qualifiers: Syncope type: unspecified Qualified Code(s): R55 - Syncope and collapse (2) New onset a-fib Current Visit: Yes Status: Acute - Plan on tele, repeat EKG cardiology consulted ECHO pending repeat orthostatic VS, continue IV fluid hydration DVT ppx Discharge Plan: Home Plan to discharge in: 24 Hours - Advance Directives Does patient have a Living Will: No Does patient have a Durable POA for Healthcare: No - Code Status/Comfort Care Code Status Assessed: Yes (full code ) Critical Care: No Time Spent Managing Pts Care (In Minutes): 70
[2021-08-20] MEDS ORDERED: ONDANSETRON 4 MG/2 ML VIAL IV PRN (06:25)
[2021-08-20] MEDS: NA CHLORIDE 0.9% 1,000 ML IV SCH ×3 (06:25→21:24)
[2021-08-20] MEDS ORDERED: ACETAMINOPHEN 500 MG TAB PO PRN (06:25)
[2021-08-20 08:01] LABS: Troponin I < 0.02 ng/mL (0.0-0.045)
[2021-08-20 08:48] VITALS: BMI 26.2
[2021-08-20] MEDS: ENOXAPARIN 40 MG/0.4 ML SQ SCH (09:00)
[2021-08-20] MEDS ORDERED: ENOXAPARIN 40 MG/0.4 ML SQ ONE (09:36)
--- NOTE | 2021-08-20 09:48 | RAD REPORT ---
EXAM DESCRIPTION: Vika Single View08/20/2021 2:03 am CLINICAL HISTORY: Syncope COMPARISON: July 2021 FINDINGS: The lungs appear clear of acute infiltrate. The heart is normal size IMPRESSION: No acute abnormalities displayed
[2021-08-20 10:10] VITALS: O2SAT 97
--- NOTE | 2021-08-20 11:11 | RAD REPORT ---
EXAM DESCRIPTION: CT - Chest For Pe Angio - 08/20/2021 10:56 am CLINICAL HISTORY: Syncope/elevated D-dimer COMPARISON: None. TECHNIQUE: Dynamically enhanced axial 3 mm thick images of the chest were obtained during administra tion of <100> mL Isovue 370 IV contrast. Coronal and oblique reconstruction images were generated and reviewed. Exam utilizes a protocol for optimal evaluation of pulmonary arterial tree. Maximum intensity projections 3D imaging was utilized All CT scans are performed using dose optimization technique as appropriate and may include automated exposure control or mA/KV adjustment according to patient size. FINDINGS: A pulmonary embolus is not seen. A thoracic aortic aneurysm is not noted. A pleural effusion is not seen. A pericardial effusion is not seen. A lung consolidation is not present. IMPRESSION: Negative for a pulmonary embolism.
--- NOTE | 2021-08-20 12:19 | P.PN ---
Date of Service: 08/20/21 Patient currently has no complaint. Heart rate is irregular. D-dimer elevated, CTA thorax negative for pulmonary embolism. Blood pressure is stable. Plan: Troponin is negative. The cause of syncopal episode is unknown. Could be related to arrhythmia. Check orthostatic vitals Echocardiogram to be done tomorrow. Heart rate is rate controlled. Supportive measures Hydrate with IV normal saline. Cardiology consult is pending.
--- NOTE | 2021-08-20 15:50 | RAD REPORT ---
EXAM DESCRIPTION: CT - Head Brain Wo Cont - 08/20/2021 5:58 am CLINICAL HISTORY: 41 years Male SYNCOPE TECHNIQUE: Axial noncontrast CT head with coronal and sagittal reformats. All CT scans at this [facility] it use dose modulation, iterative reconstruction, and/or weight based dosing when appropriate to red uce radiation dose to as low as reasonably achievable. COMPARISON: None. FINDINGS: Brain: No intracranial hemorrhage, midline shift, mass or mass effect. No obvious large ac [place] infarction. Ventricles: No hydrocephalus. Orbits: Unremarkable. Sinuses: Visualized portions are clear. Mastoid: Clear. Osseous: Unremarkable. Soft tissues: Unremarkable. IMPRESSION: No acute findings. Electronically signed by: Zeke Alcala MD 08/20/2021 2:57 AM CARDING MACHINE OPERATOR Due to temporary technical issues with the PACS/Fluency reporting system, reports are being signed by the in house radiologists without review as a courtesy to insure prompt reporting. The interpreting radiologist is fully responsible for the content of the report.
[2021-08-21 04:24] LABS: Basophils % 0.6 % (0-1.3); Hematocrit 46.8 % (39.6-49.0); MPV 7.4 fL (7.6-11.3); RBC Red Blood Cell Count 4.97 M/uL (4.33-5.43)
[2021-08-21 04:41] LABS: Potassium 3.7 mmol/L (3.5-5.1)
[2021-08-21] MEDS: NA CHLORIDE 0.9% 1,000 ML IV SCH (06:34)
--- NOTE | 2021-08-21 08:10 | EKG ---
Test Date: 2021-08-20 Test Time: 02:41:30 Double End Production Grinder: MATT MEASUREMENT RESULTS: Intervals: Rate: 75 UT: QRSD: 96 QT: 372 QTc: 415 [place]: P: UT: QRS: 34 T: 19 INTERPRETIVE STATEMENTS: Atrial fibrillation RSR' or QR pattern in V1 suggests right ventricular conduction delay Abnormal ECG Compared to ECG 08/20/2021 01:40:42 No significant changes Electronically Signed On 08-21-21 08:10:27 JOB COACH by Timo Love
--- NOTE | 2021-08-21 08:11 | EKG ---
Test Date: 2021-08-20 Test Time: 01:40:42 Library Media Specialist: MATT MEASUREMENT RESULTS: Intervals: Rate: 72 DC: QRSD: 104 QT: 380 QTc: 416 [place]: P: DC: QRS: 50 T: 26 INTERPRETIVE STATEMENTS: Atrial fibrillation RSR' or QR pattern in V1 suggests right ventricular conduction delay Abnormal ECG Compared to ECG 09/29/2016 19:55:44 RSR' in V1 or V2 now present Sinus tachycardia no longer present Incomplete right bundle-branch block no longer present Electronically Signed On 08-21-21 08:10:42 FLOOR TECHNICIAN by Timo Love
[2021-08-21] MEDS: ENOXAPARIN 40 MG/0.4 ML SQ SCH (08:56)
--- NOTE | 2021-08-21 11:00 | CON ---
Date of Consultation: 08/21/2021 Reason For Consultation: Atrial fibrillation and syncope. History Of Present Illness: Mr. Phan is a 41-year-old male. 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 He is very healthy. Does not have any history of high blood pressure, diabetes, dyslipidemia. Came in wit h a syncopal episode while he was standing up. When he came to the emergency room, he was slightly h ypotensive, but was noted to be in atrial fibrillation at rate of 80. He has never had a history of AFib before. Has not had an EKG in the last few years, so we are unsure if this is new or old. He d enied PND, orthopnea, pedal edema, or palpitation. Denied any nausea or vomiting or diaphoresis. De nied any fever or chills. He drinks 3 cups of coffee a day, but no alcohol of any significant amount . Past Medical History: Negative. Allergies: HE IS ALLERGIC TO HYDROCODONE AND PENICILLIN. Review of Systems: Positive for the fact that he needs left shoulder surgery set up for sometimes in September. Family History: Noncontributory. Medications: At home include testosterone. Physical Examination: Vital Signs: Stable except for atrial fibrillation, rate of 83. HEENT: Negative. Neck: Supple with no bruit, JVD, thyromegaly, lymphadenopathy. Chest: Clear. Cardiac: Revealed atrial fibrillation. No murmurs, gallops, or rubs. Abdomen: Benign. Extremities: Revealed no clubbing, cyanosis, or edema. Diagnostic Data: That were available include D-dimer of 560. Otherwise, EKG showed AFib, everything else was normal. Impression And Plan: Syncope, possibly secondary to hypotension or atrial fibrillation with slow chasity tricular response. His TSH is normal. Echocardiogram is pending. I think the patient should be on an aspirin, no beta-blockers. We will see what the echocardiogram shows. I will have him wear a 14- day event monitor to rule out sick sinus syndrome or long pulses causing his syncope, at which point, he will need a pacemaker. He is asymptomatic as far as his atrial fibrillation is concerned, he buenrostro s not have any palpitations or shortness of breath or chest pain with that. It may be worth doing a Lexiscan down the road. I think I will clear him for his shoulder surgery when the time comes. I wi ll see him in the office after his event monitor. Otherwise, resume normal activities. I will await for the echo before he goes home. PATRICIA/GALI Voice ID: [id number] Report ID: [id number]
[2021-08-21 12:11] VITALS: BP 127/73; TEMP 98.1
--- NOTE | 2021-08-21 14:01 | P.DS ---
Admission Date: 08/20/21 Discharge Date: 08/21/21 Primary Care Provider: Marissa Disposition: ROUTINE DISCHARGE Discharge Condition: FAIR Reason for Admission: syncope, afib - Problems (1) New onset a-fib Current Visit: Yes Status: Acute (2) Syncope Current Visit: Yes Status: Acute Qualifiers: Syncope type: unspecified Qualified Code(s): R55 - Syncope and collapse Brief History of Present Illness: Mr. Phan is a 41 yo M who presents after syncopal episode. He got up to the go to the bathroom when he felt a tingling sensation throughout his body and felt like he was losing his balance, and the next thing he remember is waking up on the bathroom floor. He hit is head on the cabinet and he was initially confused. says he was diaphoretic and incoherent when she reached him. After about 5 minutes, she tried to help him stand up but he was still weak. BUN 36 GFR 65 Glu [address] Head without acute findings. Troponin negative. EKG shows rate controlled atrial fibrillation. Patient admitted for further management. Hospital Course: Patient admitted to the medical floor. He remained in atrial fibrillation throughout the hospital stay. Patient seen and evaluated by cardiology-Dr. Love who recommended a beta-jose de jesus and aspirin. Patient started on metoprolol 25 mg twice daily and aspirin 81 mg daily. Echocardiogram done unremarkable with normal EF. Dr. Love recommend outpatient event monitor, and suspect patient may need a pacemaker. Patient vitals have been stable, he has been asymptomatic. He is clinically stable for discharge. Vital Signs/Physical Exam: Temp Pulse Resp BP Pulse Ox 98.1 F 105 H 20 127/73 96 08/21/21 12:00 08/21/21 12:00 08/21/21 12:00 08/21/21 12:00 08/21/21 12:00 General: Alert, In no apparent distress, Oriented x3 HEENT: Mucous membr. moist/pink Neck: JVD not distended Respiratory: Clear to auscultation bilaterally, Normal air movement Cardiovascular: No edema, Normal S1 S2, Irregular heart rate/rhythm Gastrointestinal: Normal bowel sounds, Soft and benign, Non-distended, No tenderness Musculoskeletal: No swelling, No tenderness Integumentary: No rashes, No erythema, No cyanosis Neurological: Normal speech, Normal strength at 5/5 x4 extr, Cranial nerves 3-12 intact Laboratory Data at Discharge: WBC 8.30 K/uL (4.3-10.9) 08/21/21 03:24 Hgb 15.6 g/dL (13.6-17.9) 08/21/21 03:24 Hct 46.8 % (39.6-49.0) 08/21/21 03:24 Plt Count 226 K/uL (152-406) 08/21/21 03:24 PT 11.0 SECONDS (9.5-12.5) 08/20/21 01:53 INR 0.96 08/20/21 01:53 Sodium 144 mmol/L (136-145) 08/21/21 03:24 Potassium 3.7 mmol/L (3.5-5.1) 08/21/21 03:24 BUN 23 mg/dL (7-18) H 08/21/21 03:24 Creatinine 1.20 mg/dL (0.55-1.3) 08/21/21 03:24 Glucose 97 mg/dL (74-106) 08/21/21 03:24 Magnesium 2.2 mg/dL (1.8-2.4) 08/20/21 01:53 Total Bilirubin 0.5 mg/dL (0.2-1.0) 08/20/21 01:53 AST 18 U/L (15-37) 08/20/21 01:53 ALT 28 U/L (12-78) 08/20/21 01:53 Alkaline Phosphatase 93 U/L (45-117) 08/20/21 01:53 Troponin I < 0.02 ng/mL (0.0-0.045) 08/20/21 06:45 Triglycerides 69 mg/dL (<150) 08/21/21 03:24 Cholesterol 120 mg/dL (<200) 08/21/21 03:24 HDL Cholesterol 53 mg/dL (40-60) 08/21/21 03:24 Cholesterol/HDL Ratio 2.26 08/21/21 03:24 Home Medications: Testosterone Cypionate 100 mg IM DIRECTED 08/20/21 Aspirin [Aspirin EC] 81 mg PO DAILY #30 tablet.dr 08/21/21 Metoprolol Tartrate [Lopressor*] 25 mg PO BID 6AM 6PM #60 tab 08/21/21 New Medications: Aspirin [Aspirin EC] 81 mg PO DAILY #30 tablet. Metoprolol Tartrate [Lopressor*] 25 mg PO BID 6AM 6PM #60 tab Diet: AHA Activity: Ad david Followup: Timo Love MD [ACTIVE - CAN ADMIT] - 1 Week NONE,NONE [Primary Care Provider] - Time spent managing pt's care (in minutes): 32
--- NOTE | 2021-08-21 14:16 | ECHO ---
HEIGHT: 6 ft 4 in WEIGHT: 215 lb 0 oz DATE OF STUDY: 08/21/[address]: Chris Looney 2-DIMENSIONAL: YES M.MODE: YES DOPPLER: YES COLOR FLOW: YES TDS: PORTABLE: DEFINITY: BUBBLE STUDY: DIAGNOSIS: ATRIAL FIBRILLATION CARDIAC HISTORY: CATHERIZATION: NO SURGERY: NO PROSTHETIC VALVE: NO PACEMAKER: NO MEASUREMENTS (cm) DIASTOLIC (NORMALS) SYSTOLIC (NORMALS) IVSd 1.2 (0.6-1.2) LA Diam 3.4 (1.9-4.0) LVEF 57% LVIDd 4.0 (3.5-5.7) LVIDs 2.9 (2.0-3.5) %FS 29% LVPWd 1.2 (0.6-1.2) Ao Diam 2.8 (2.0-3.7) 2 DIMENSIONAL ASSESSMENT: RIGHT ATRIUM: NORMAL LEFT ATRIUM: NORMAL RIGHT VENTRICLE: NORMAL LEFT VENTRICLE: NORMAL TRICUSPID VALVE: NORMAL MITRAL VALVE: MILD MITRAL ANNULAR CALCIFICATION PULMONIC VALVE: NORMAL AORTIC VALVE: NORMAL PERICARDIAL EFFUSION: NONE AORTIC ROOT: NORMAL LEFT VENTRICULAR WALL MOTION: NORMAL DOPPLER/COLOR FLOW: SEE BELOW COMMENTS: NORMAL LEFT VENTRICULAR EJECTION FRACTION 55-60%. MILD TRICUSPID REGURGITATION. MILD MITRAL REGURGITATION. ATRIAL FIBRILLATION. TECHNOLOGIST: DEBBY MANSFIELD
[2021-08-21] MEDS ORDERED: METOPROLOL TAR 25 MG TAB PO SCH (18:00)
[2021-08-22] MEDS ORDERED: ASPIRIN EC 81 MG TAB PO SCH (09:00)
== END 2021-08-21 16:55 | disposition home or self-care (01) | DRG 310 ==
LOC: ER 01:13 → ERHOLD 04:39 → INTOOBSV 04:39 → 2ND 09:30 → OBSVTOIN 14:17
PROVIDERS: ADMIT Internal Medicine; ATTEND Internal Medicine
DX: I48.91 Unspecified atrial fibrillation (principal); R55 Syncope and collapse; W18.30XA Fall on same level, unspecified, initial encounter; Y93.9 Activity, unspecified; Y92.091 Bathroom in other non-institutional residence as the place of occurrence of the external cause; Z88.0 Allergy status to penicillin; Z88.5 Allergy status to narcotic agent; Z88.8 Allergy status to other drugs, medicaments and biological substances; Z79.899 Other long term (current) drug therapy; Z79.82 Long term (current) use of aspirin; Z20.822 Contact with and (suspected) exposure to COVID-19
CPT/HCPCS: 0240U; 36415; 70450; 71045; 71275; 80048; 80061; 80076; 80307; 80320; 80329; 83735; 83880; 84439; 84443; 84484; 85025; 85379; 85610; 93005; 93306; 96360; 96361; 99284; G0378; J1650; J7030; Q9967